=== PATIENT | male | born 1970 | race Two or more races ===

== ENCOUNTER → 2024-11-19 | Outpatient (CLI) | payer SELFPAY | END | disposition home or self-care (01) | LOC: LABSPEC 01-28 12:13 | PROVIDERS: Visit Provider Student in an Organized Health Care Education/Training Program | DX: L03.116 Cellulitis of left lower limb (principal); L97.522 Non-pressure chronic ulcer of other part of left foot with fat layer exposed | CPT/HCPCS: 87070; 87075; 87077; 87186; 87205 ==